=== PATIENT | female | born 1930 | race Caucasian/White ===

== ENCOUNTER 2019-04-28 01:15 | Inpatient (IN) ==
[2019-04-28] MEDS ORDERED: ONDANSETRON 4 MG/2 ML VIAL IV PRN (11:12)
[2019-04-28] MEDS ORDERED: MORPHINE 4 MG/1 ML VIAL IV PRN ×2 (11:12→15:12)
[2019-04-28] MEDS ORDERED: VANCOMYCIN INJ 1,000 MG in SODIUM CHLORIDE 0.9% 250 ML IV ONE (11:12)
[2019-04-28] MEDS ORDERED: MAGNESIUM HYDROXIDE SUSP 30 ML UDCUP PO PRN (11:12)
[2019-04-28] MEDS ORDERED: ceFAZolin 2,000 MG in SYRINGE 1 EACH IV ONE (11:30)
[2019-04-28] MEDS ORDERED: BACITRACIN OINT 0.9 GM PACK TOP ONE (11:52)
[2019-04-28 11:59] LABS: Basophils # 0.1 10*3/uL (0.0-0.2); Basophils % 0.6 % (0.0-0.8); Eosinophils % 0.2 % (0.00-10.9); Hematocrit 26.1 VOL% (35.7-47.0); Hemoglobin 8.4 GM/DL (12.0-16.0); Immature Granulocytes % 0.6 %; Immature Granulocytes Absolute 0.05 #; Lymphocytes # 2.3 10*3/uL (1.4-4.0); Lymphocytes % 25.9 % (21.3-54.2); Mean Corpuscular HGB Conc 32.2 GM/DL (32-36); Mean Corpuscular Volume 101.2 FL (87-102); Monocytes % 8.7 % (1.7-12.7); Platelet Count 151 T/CUMM (130-400); Red Blood Count 2.58 MC/CUMM (3.8-5.5); Red Cell Distribution Width 14.3 % (9.3-17.3)
[2019-04-28] MEDS: LACTATED RINGERS 1,000 ML IV SCH ×2 (12:19→20:36)
[2019-04-28 12:23] LABS: PT Patient Result 10.7 SECS; Partial Thromboplastin Time 28.9 SECS (0-40)
[2019-04-28 12:26] LABS: Albumin 3.1 G/DL (3.4-5.0); Calcium 9.1 MG/DL (8.5-10.1); Osmolality,Calculated 295.4 MOS/KG (273-304); Total Protein 5.9 G/DL (6.4-8.3)
[2019-04-28] MEDS ORDERED: ceFAZolin 1,000 MG VIAL ONE (12:28)
[2019-04-28] MEDS ORDERED: BUPIVACAINE 0.5% 50 ML VIAL ONE (12:43)
[2019-04-28] MEDS ORDERED: DEXAMETHASONE 4 MG/1 ML VIAL ONE (12:43)
[2019-04-28] MEDS ORDERED: BUPIVACAINE SPINAL 0.75% 2 ML AMP SPINAL ONE (12:43)
[2019-04-28] MEDS ORDERED: SODIUM CHLORIDE 0.9% 1,000 ML IV PRN (15:09)
[2019-04-28] MEDS ORDERED: PROPOFOL 200 MG/20 ML VIAL IV ONE (15:55)
[2019-04-28] MEDS ORDERED: fentaNYL 100 MCG/2 ML VIAL ONE (15:55)
[2019-04-28] MEDS ORDERED: PHENYLEPHRINE 10 MG/1 ML VIAL IV ONE (15:56)
[2019-04-28] MEDS ORDERED: SODIUM CHLORIDE 0.9% 250 ML IV ONE (15:56)
[2019-04-28] MEDS ORDERED: PHENYLEPHRINE 1 MG/10 ML SYRINGE IV ONE (15:56)
[2019-04-28] MEDS ORDERED: SODIUM CHLORIDE 0.9% 100 ML IV ONE (15:56)
[2019-04-28] MEDS ORDERED: ONDANSETRON 4 MG/2 ML VIAL ONE (15:56)
[2019-04-28] MEDS ORDERED: FUROSEMIDE 40 MG/4 ML VIAL IV PRN (16:00)
[2019-04-28] MEDS: ceFAZolin 2,000 MG in SYRINGE 1 EACH IV SCH (21:30)
[2019-04-28] MEDS: SACUBITRIL/VALSARTAN 49-51 MG TABLET PO SCH (21:31)
[2019-04-28] MEDS: CARVEDILOL 12.5 MG TABLET PO SCH (21:31)
[2019-04-28] MEDS: CALCIUM (CARBONATE)/VITAMIN D 600 MG-400 UNIT TABLET PO SCH (21:31)
[2019-04-28] MEDS: GABAPENTIN 100 MG CAPSULE PO SCH (21:31)
[2019-04-28] MEDS: DOCUSATE SODIUM 100 MG CAPSULE PO SCH (21:32)
[2019-04-29 04:59] LABS: Basophils % 0.2 % (0.0-0.8); Hematocrit 29.3 VOL% (35.7-47.0); Hemoglobin 9.6 GM/DL (12.0-16.0); Immature Granulocytes % 0.7 %; Immature Granulocytes Absolute 0.08 #; Lymphocytes # 1.6 10*3/uL (1.4-4.0); Lymphocytes % 13.5 % (21.3-54.2); Mean Corpuscular HGB Conc 32.8 GM/DL (32-36); Mean Platelet Volume 11.6 FL (9.6-12.0); Monocytes % 6.9 % (1.7-12.7); Neutrophils % 78.7 % (38.7-73.9); Platelet Count 123 T/CUMM (130-400); Red Blood Count 3.02 MC/CUMM (3.8-5.5); Red Cell Distribution Width 15.6 % (9.3-17.3); White Blood Count 11.7 T/CUMM (4-12)
[2019-04-29 05:19] LABS: Calcium 8.8 MG/DL (8.5-10.1); Osmolality,Calculated 290.8 MOS/KG (273-304)
[2019-04-29] MEDS: ceFAZolin 2,000 MG in SYRINGE 1 EACH IV SCH (05:44)
[2019-04-29] MEDS: LACTATED RINGERS 1,000 ML IV SCH (06:11)
[2019-04-29] MEDS: CARVEDILOL 12.5 MG TABLET PO SCH ×2 (09:59→20:20)
[2019-04-29] MEDS: POTASSIUM CHLORIDE 20 MEQ TABLET PO SCH (09:59)
[2019-04-29] MEDS: SACUBITRIL/VALSARTAN 49-51 MG TABLET PO SCH ×2 (09:59→20:20)
[2019-04-29] MEDS: DOCUSATE SODIUM 100 MG CAPSULE PO SCH ×2 (09:59→20:20)
[2019-04-29] MEDS: ALLOPURINOL 300 MG TABLET PO SCH (09:59)
[2019-04-29] MEDS: CETIRIZINE 10 MG TABLET PO SCH (10:00)
[2019-04-29] MEDS: FONDAPARINUX 2.5 MG/0.5 ML SYRINGE SUBCUT SCH (10:00)
[2019-04-29] MEDS: FLUTICASONE 50 MCG NASAL SPRAY 16 GM BOTTLE BOTH NARES SCH (10:00)
[2019-04-29] MEDS: CALCIUM (CARBONATE)/VITAMIN D 600 MG-400 UNIT TABLET PO SCH ×2 (10:00→20:20)
[2019-04-29] MEDS: TORSEMIDE 20 MG TABLET PO SCH (10:01)
[2019-04-29] MEDS: GABAPENTIN 100 MG CAPSULE PO SCH (20:20)
[2019-04-30 05:52] LABS: Basophils % 0.2 % (0.0-0.8); Eosinophils % 0.1 % (0.00-10.9); Hematocrit 26.6 VOL% (35.7-47.0); Hemoglobin 8.6 GM/DL (12.0-16.0); Immature Granulocytes % 0.5 %; Immature Granulocytes Absolute 0.06 #; Lymphocytes # 2.5 10*3/uL (1.4-4.0); Lymphocytes % 21.9 % (21.3-54.2); Mean Corpuscular HGB Conc 32.3 GM/DL (32-36); Mean Corpuscular Volume 97.1 FL (87-102); Mean Platelet Volume 11.7 FL (9.6-12.0); Monocytes % 9.9 % (1.7-12.7); Neutrophils % 67.4 % (38.7-73.9); Platelet Count 141 T/CUMM (130-400); Red Blood Count 2.74 MC/CUMM (3.8-5.5); Red Cell Distribution Width 15.6 % (9.3-17.3); White Blood Count 11.6 T/CUMM (4-12)
[2019-04-30] MEDS: CETIRIZINE 10 MG TABLET PO SCH (09:44)
[2019-04-30] MEDS: TORSEMIDE 20 MG TABLET PO SCH (09:44)
[2019-04-30] MEDS: ALLOPURINOL 300 MG TABLET PO SCH (09:44)
[2019-04-30] MEDS: SACUBITRIL/VALSARTAN 49-51 MG TABLET PO SCH ×2 (09:44→21:24)
[2019-04-30] MEDS: CALCIUM (CARBONATE)/VITAMIN D 600 MG-400 UNIT TABLET PO SCH ×2 (09:44→21:24)
[2019-04-30] MEDS: CARVEDILOL 12.5 MG TABLET PO SCH ×2 (09:45→21:24)
[2019-04-30] MEDS: POTASSIUM CHLORIDE 20 MEQ TABLET PO SCH (09:45)
[2019-04-30] MEDS: FONDAPARINUX 2.5 MG/0.5 ML SYRINGE SUBCUT SCH (09:46)
[2019-04-30] MEDS: FLUTICASONE 50 MCG NASAL SPRAY 16 GM BOTTLE BOTH NARES SCH (09:48)
[2019-04-30] MEDS: DOCUSATE SODIUM 100 MG CAPSULE PO SCH ×2 (10:03→21:27)
[2019-04-30] MEDS: GABAPENTIN 100 MG CAPSULE PO SCH (21:23)
[2019-05-01 04:57] LABS: Basophils % 0.3 % (0.0-0.8); Eosinophils # 0.1 10*3/uL (0.0-0.87); Eosinophils % 1.3 % (0.00-10.9); Hematocrit 28.4 VOL% (35.7-47.0); Hemoglobin 9.2 GM/DL (12.0-16.0); Immature Granulocytes % 0.5 %; Immature Granulocytes Absolute 0.06 #; Lymphocytes # 2.8 10*3/uL (1.4-4.0); Lymphocytes % 25.2 % (21.3-54.2); Mean Corpuscular HGB Conc 32.4 GM/DL (32-36); Mean Corpuscular Volume 97.3 FL (87-102); Monocytes % 11.8 % (1.7-12.7); Neutrophils % 60.9 % (38.7-73.9); Platelet Count 158 T/CUMM (130-400); Red Blood Count 2.92 MC/CUMM (3.8-5.5); Red Cell Distribution Width 14.8 % (9.3-17.3); White Blood Count 11.2 T/CUMM (4-12)
[2019-05-01] MEDS: CALCIUM (CARBONATE)/VITAMIN D 600 MG-400 UNIT TABLET PO SCH ×2 (09:35→20:56)
[2019-05-01] MEDS: ALLOPURINOL 300 MG TABLET PO SCH (09:35)
[2019-05-01] MEDS: POTASSIUM CHLORIDE 20 MEQ TABLET PO SCH (09:36)
[2019-05-01] MEDS: SACUBITRIL/VALSARTAN 49-51 MG TABLET PO SCH ×2 (09:36→20:56)
[2019-05-01] MEDS: DOCUSATE SODIUM 100 MG CAPSULE PO SCH ×2 (09:36→20:56)
[2019-05-01] MEDS: CETIRIZINE 10 MG TABLET PO SCH (09:36)
[2019-05-01] MEDS: CARVEDILOL 12.5 MG TABLET PO SCH ×2 (09:36→20:56)
[2019-05-01] MEDS: TORSEMIDE 20 MG TABLET PO SCH (09:36)
[2019-05-01] MEDS: FONDAPARINUX 2.5 MG/0.5 ML SYRINGE SUBCUT SCH (09:37)
[2019-05-01] MEDS: FLUTICASONE 50 MCG NASAL SPRAY 16 GM BOTTLE BOTH NARES SCH (09:39)
[2019-05-01] MEDS ORDERED: TUBERCULIN SKIN TEST 0.1 ML SYRINGE INTRADERM ONE (09:56)
[2019-05-01] MEDS: GABAPENTIN 100 MG CAPSULE PO SCH (20:56)
[2019-05-02] MEDS: TORSEMIDE 20 MG TABLET PO SCH (10:01)
[2019-05-02] MEDS: CALCIUM (CARBONATE)/VITAMIN D 600 MG-400 UNIT TABLET PO SCH ×2 (10:01→21:01)
[2019-05-02] MEDS: POTASSIUM CHLORIDE 20 MEQ TABLET PO SCH (10:02)
[2019-05-02] MEDS: DOCUSATE SODIUM 100 MG CAPSULE PO SCH ×2 (10:02→21:01)
[2019-05-02] MEDS: SACUBITRIL/VALSARTAN 49-51 MG TABLET PO SCH ×2 (10:02→21:01)
[2019-05-02] MEDS: CARVEDILOL 12.5 MG TABLET PO SCH ×2 (10:02→21:01)
[2019-05-02] MEDS: ALLOPURINOL 300 MG TABLET PO SCH (10:02)
[2019-05-02] MEDS: CETIRIZINE 10 MG TABLET PO SCH (10:02)
[2019-05-02] MEDS: FONDAPARINUX 2.5 MG/0.5 ML SYRINGE SUBCUT SCH (10:04)
[2019-05-02] MEDS: FLUTICASONE 50 MCG NASAL SPRAY 16 GM BOTTLE BOTH NARES SCH (10:04)
[2019-05-02] MEDS: GABAPENTIN 100 MG CAPSULE PO SCH (21:01)
[2019-05-03] MEDS: TORSEMIDE 20 MG TABLET PO SCH (08:43)
[2019-05-03] MEDS: DOCUSATE SODIUM 100 MG CAPSULE PO SCH (08:43)
[2019-05-03] MEDS: CALCIUM (CARBONATE)/VITAMIN D 600 MG-400 UNIT TABLET PO SCH (08:43)
[2019-05-03] MEDS: POTASSIUM CHLORIDE 20 MEQ TABLET PO SCH (08:43)
[2019-05-03] MEDS: FLUTICASONE 50 MCG NASAL SPRAY 16 GM BOTTLE BOTH NARES SCH (08:44)
[2019-05-03] MEDS: SACUBITRIL/VALSARTAN 49-51 MG TABLET PO SCH (08:44)
[2019-05-03] MEDS: CETIRIZINE 10 MG TABLET PO SCH (08:44)
[2019-05-03] MEDS: CARVEDILOL 12.5 MG TABLET PO SCH (08:44)
[2019-05-03] MEDS: ALLOPURINOL 300 MG TABLET PO SCH (08:44)
[2019-05-03] MEDS: FONDAPARINUX 2.5 MG/0.5 ML SYRINGE SUBCUT SCH (08:54)
[2019-05-03 11:31] VITALS: BP 121/49
== END 2019-05-03 15:02 | disposition swing bed (61) | DRG 481 ==
LOC: N.3E → SUATTDRO 10:28
PROVIDERS: ADMIT Internal Medicine; ATTEND Internal Medicine Geriatric Medicine